=== PATIENT | male | born 1970 | race Caucasian/White ===

== ENCOUNTER 2016-12-27 11:23 | Outpatient (CLI) | payer OTHER | END 2016-12-27 11:24 | disposition home or self-care (01) | DX: R06.00 Dyspnea, unspecified (principal) ==

== ENCOUNTER 2019-03-27 08:08 | Outpatient (CLI) | payer OTHER ==
--- NOTE | 2019-03-27 13:16 | XRAY Report ---
Reason: PNEUMONIA,UNSPECIFIED ORGANISM Procedure Date: 03/27/2019 Accession Number: [id number] / [id number] Procedure: XRS - Chest 2 View X-Ray CPT Code: 12442 FULL RESULT: EXAM: CHEST RADIOGRAPHY EXAM DATE: 03/27/2019 08:24 AM. CLINICAL HISTORY: Cough. COMPARISON: 10/15/2013 4:11 PM. TECHNIQUE: 2 views. FINDINGS: Lungs/Pleura: No localized infiltrate, consolidation, effusion, or pneumothorax. Mediastinum: Heart and mediastinal contours are unremarkable. Other: None. IMPRESSION: No acute disease. RADIA
== END 2019-03-27 08:09 | disposition home or self-care (01) ==
LOC: DI.S 08:08
PROVIDERS: ATTEND Physician Assistant
DX: J18.9 Pneumonia, unspecified organism (principal)
CPT/HCPCS: 71046